=== PATIENT | female | born 1950 | race Caucasian/White ===

== ENCOUNTER 2022-04-30 16:11 | Observation (INO) ==
[2022-04-30] MEDS ORDERED: NS 0.9% 500 ml BAG 500 ML IV ONE (16:47)
[2022-04-30] MEDS ORDERED: Iodixanol (CONTRAST) 320 MG/ML 100 ML SDV IV ONE (17:00)
[2022-04-30 17:06] LABS: ABS Basophils 0.1 10^3/ul (0-0.2); ABS Eosinophils 0.1 10^3/ul (0-0.6); ABS Lymphocytes 3.3 10^3/ul (1.0-4.8); ABS Neutrophils 5.2 10^3/ul (1.5-7.7); Eosinophil % 1.4 %; Hematocrit 41 % (35-47); Hemoglobin 13.3 g/dL (12.0-16.0); Lymphocyte % 34.3 %; Mean Corpuscular HGB Conc 33 g/dL (31-36); Mean Corpuscular Hemoglobin 28 pg (27-31); Mean Corpuscular Volume 86 fL (80-97); Platelet Count 243 10^3/uL (150-450); Red Blood Count 4.78 10^6 /uL (3.70-4.87); Red Cell Distribution Width 14 % (10-15); White Blood Count 9.7 10^3/uL (3.5-10.8)
[2022-04-30 17:17] LABS: INR 1.07 (0.89-1.11)
[2022-04-30 17:23] LABS: Albumin 4.4 g/dL (3.2-5.2); Albumin/Globulin Ratio 1.9 (1-3); Calcium 9.5 mg/dL (8.6-10.3); Globulin 2.3 g/dL (2-4); Potassium 4.2 mmol/L (3.5-5.0); Total Bilirubin 0.3 mg/dL (0.2-1.0); Total Protein 6.7 g/dL (6.4-8.9); eGFR CKD-EPI 75.3 (>60)
[2022-04-30 18:29] LABS: High Sensitivity Troponin 1 Hr 4 pg/mL (<15)
[2022-04-30] MEDS ORDERED: Enoxaparin 30 MG/0.3 ML SYR SUBCUT SCH (19:00)
[2022-04-30] MEDS ORDERED: Enoxaparin 40 MG/0.4 ML SYR SUBCUT SCH (20:00)
[2022-05-01 04:33] LABS: ABS Basophils 0.1 10^3/ul (0-0.2); ABS Eosinophils 0.2 10^3/ul (0-0.6); ABS Lymphocytes 4.3 10^3/ul (1.0-4.8); ABS Neutrophils 4.7 10^3/ul (1.5-7.7); Hematocrit 38 % (35-47); Hemoglobin 12.4 g/dL (12.0-16.0); Lymphocyte % 41.6 %; Mean Corpuscular HGB Conc 33 g/dL (31-36); Mean Corpuscular Hemoglobin 28 pg (27-31); Mean Corpuscular Volume 85 fL (80-97); Nucleated Red Blood Cells % 0.1; Platelet Count 224 10^3/uL (150-450); Red Blood Count 4.46 10^6 /uL (3.70-4.87); Red Cell Distribution Width 14 % (10-15); White Blood Count 10.3 10^3/uL (3.5-10.8)
[2022-05-01 05:29] LABS: Calcium 8.8 mg/dL (8.6-10.3); Magnesium 2.1 mg/dL (1.9-2.7); Potassium 4.1 mmol/L (3.5-5.0); eGFR CKD-EPI 61.7 (>60)
[2022-05-01] MEDS ORDERED: Amphetamine MIXED SALT 10mgTAB PO SCH (09:00)
[2022-05-01] MEDS ORDERED: CMCS: Pravastatin 20 mg TAB (NF) PO SCH (09:00)
[2022-05-01 18:10] VITALS: BP 139/83
== END 2022-05-01 18:12 | disposition home or self-care (01) ==
LOC: EDHOLD 16:11 → ED 16:11 → SUATTDRO 18:43 → EDHOLD 05-01 18:09
PROVIDERS: ADMIT Internal Medicine; ATTEND Hospitalist